=== PATIENT | male | born 1995 | race Caucasian/White ===

== ENCOUNTER 2017-05-21 16:48 | Emergency (ER) | payer SELFPAY | END 2017-05-21 18:35 | disposition home or self-care (01) | LOC: ER 16:48 | DX: K02.9 Dental caries, unspecified (principal); L03.211 Cellulitis of face; I25.2 Old myocardial infarction; F32.9 Major depressive disorder, single episode, unspecified; F17.200 Nicotine dependence, unspecified, uncomplicated; Z79.899 Other long term (current) drug therapy; Z88.0 Allergy status to penicillin; Z88.1 Allergy status to other antibiotic agents | CPT/HCPCS: 36415; 96365; 96375 ==